=== PATIENT | male | born 1985 | race Caucasian/White ===

== ENCOUNTER 2021-12-27 16:10 | Observation (INO) | payer MEDICAID ==
[2021-12-27] MEDS ORDERED: Ondansetron 4 MG/2 ML SDV IVPUSH ONE ×2 (16:56→19:03)
[2021-12-27] MEDS ORDERED: Sodium Chloride 0.9% 1,000 ML IV ONE (16:56)
[2021-12-27] MEDS ORDERED: Sodium Chloride 0.9% 10 ML Syringe FLUSH PRN (16:57)
[2021-12-27] MEDS ORDERED: Pantoprazole 40 MG Vial IVPUSH SCH (17:00)
[2021-12-27] MEDS ORDERED: Iopamidol 612 MG/ML 100 ML Bottle IV PRN (17:14)
[2021-12-27] MEDS ORDERED: Sodium Chloride 0.9% 100 ML IV SCH (17:15)
[2021-12-27] MEDS: Lidocaine 1% PF 2 ML SDV IV SCH ×2 (18:22→23:05)
[2021-12-27] MEDS: Potassium Chloride 20 MEQ in Premix Bag 1 BAG IV SCH ×2 (18:23→20:59)
[2021-12-27] MEDS ORDERED: Prochlorperazine 10 MG in Sodium Chloride 0.9% 50 ML IV ONE (19:34)
[2021-12-27] MEDS ORDERED: Prochlorperazine 10 MG/2 ML SDV IVPUSH ONE (19:39)
[2021-12-27] MEDS ORDERED: Sodium Chloride 0.9% 1,000 ML IV SCH ×2 (19:45→22:30)
[2021-12-27 20:37] LABS: CORONAVIRUS COVID-19 NAA NEGATIVE (NEGATIVE)
[2021-12-27] MEDS ORDERED: Alum Hydrox/Mag Hydrox/Simeth 15 ML, Lidocaine 2% 15 ML PO ONE ×2 (20:50)
[2021-12-27] MEDS ORDERED: Famotidine 20 MG/2 ML SDV IVPUSH ONE (21:00)
[2021-12-27] MEDS ORDERED: Ondansetron 4 MG Tab.DIS PO PRN (21:27)
[2021-12-27] MEDS ORDERED: Temazepam 15 MG Cap PO PRN (21:27)
[2021-12-27] MEDS ORDERED: Magnesium Hydroxide 400 MG/5 ML Susp 30 ML Cup PO PRN (21:27)
[2021-12-27] MEDS ORDERED: Ondansetron 4 MG/2 ML SDV IV PRN (21:27)
[2021-12-27] MEDS ORDERED: Acetaminophen 325 MG Tab PO PRN (21:27)
[2021-12-27] MEDS ORDERED: Sucralfate Suspension 1 GM/10 ML Cup PO PRN (21:45)
[2021-12-27] MEDS ORDERED: Aluminum Hydroxide/Magnesium Hydroxide/Simethicone Susp 30 ML Cup PO PRN (21:45)
[2021-12-27] MEDS ORDERED: Famotidine 20 MG Tab PO PRN (21:47)
[2021-12-27] MEDS ORDERED: diphenhydrAMINE 50 MG/ML SDV IVPUSH PRN (21:49)
[2021-12-27] MEDS ORDERED: Prochlorperazine 10 MG/2 ML SDV IVPUSH PRN (21:49)
[2021-12-27] MEDS ORDERED: Nortriptyline 25 MG Cap PO SCH (22:20)
[2021-12-27] MEDS: Sodium Chloride 0.9% 1,000 ML IV SCH (23:47)
[2021-12-28] MEDS: Sodium Chloride 0.9% 1,000 ML IV SCH (06:32)
[2021-12-28] MEDS ORDERED: Pantoprazole 40 MG Tab.CR PO SCH (07:30)
[2021-12-28] MEDS ORDERED: Nortriptyline 25 MG Cap PO SCH ×2 (09:00→21:00)
== END 2021-12-28 10:29 | disposition home or self-care (01) ==
LOC: JP.ED 16:10 → JP.ICU 19:54
PROVIDERS: ADMIT Internal Medicine; ATTEND Internal Medicine
DX: R11.2 Nausea with vomiting, unspecified (principal); E86.0 Dehydration; E87.6 Hypokalemia; K92.89 Other specified diseases of the digestive system; H54.7 Unspecified visual loss; Z88.0 Allergy status to penicillin; Z87.891 Personal history of nicotine dependence; Z20.822 Contact with and (suspected) exposure to COVID-19; Z79.899 Other long term (current) drug therapy
CPT/HCPCS: 0241U; 36415; 74177; 80048; 80053; 80305-QW; 83605; 83690; 83735; 84132; 85025; 85610; 85730; 86140; 87040; 96361; 96365; 96366; 96375; 96376; 99284; 99285-25; A9270-GY; C9113; G0378; J0780; J2405; J3480; J3490; J7030; Q9967; U0002